=== PATIENT | female | born 1945 | race Caucasian/White ===

== ENCOUNTER 2017-10-22 04:45 | Outpatient (CLI) | payer MEDICARE | END 2017-10-22 23:59 | disposition home or self-care (01) | LOC: DIABETIC 04:45 | PROVIDERS: ATTEND Specialist | DX: E11.9 Type 2 diabetes mellitus without complications (principal) | CPT/HCPCS: G0108 ==

== ENCOUNTER 2018-06-06 01:41 | Outpatient (CLI) | payer MEDICARE | END 2018-06-06 23:59 | disposition home or self-care (01) | LOC: DIABETIC 01:41 | PROVIDERS: ATTEND Specialist | DX: E11.65 Type 2 diabetes mellitus with hyperglycemia (principal); Z79.84 Long term (current) use of oral hypoglycemic drugs; Z91.018 Allergy to other foods | CPT/HCPCS: G0108 ==

== ENCOUNTER 2018-09-03 05:19 | Outpatient (CLI) | payer MEDICARE | END 2018-09-03 23:59 | disposition home or self-care (01) | LOC: DIABETIC 05:19 | PROVIDERS: ATTEND Specialist | DX: E11.65 Type 2 diabetes mellitus with hyperglycemia (principal) | CPT/HCPCS: G0108 ==

== ENCOUNTER 2018-12-04 01:00 | Outpatient (CLI) | payer MEDICARE | END 2018-12-04 23:59 | disposition home or self-care (01) | LOC: DIABETIC 01:00 | PROVIDERS: ATTEND Specialist | DX: E11.65 Type 2 diabetes mellitus with hyperglycemia (principal); Z79.84 Long term (current) use of oral hypoglycemic drugs; Z91.018 Allergy to other foods | CPT/HCPCS: G0108 ==

== ENCOUNTER → 2019-03-11 | Outpatient (CLI) | payer MEDICARE | END | disposition home or self-care (01) | LOC: CANPRECLI → DIABETIC 04:55 | PROVIDERS: ATTEND Specialist | DX: E11.9 Type 2 diabetes mellitus without complications (principal); Z53.21 Procedure and treatment not carried out due to patient leaving prior to being seen by health care provider ==

== ENCOUNTER 2019-04-23 01:04 | Outpatient (CLI) | payer MEDICARE | END 2019-04-23 23:59 | disposition home or self-care (01) | LOC: DIABETIC 01:04 | PROVIDERS: ATTEND Specialist | DX: E11.65 Type 2 diabetes mellitus with hyperglycemia (principal); Z79.84 Long term (current) use of oral hypoglycemic drugs; Z79.899 Other long term (current) drug therapy; Z91.018 Allergy to other foods | CPT/HCPCS: G0108 ==

== ENCOUNTER 2019-07-31 01:51 | Outpatient (CLI) | payer MEDICARE | END 2019-07-31 23:59 | disposition home or self-care (01) | LOC: DIABETIC 01:51 | PROVIDERS: ATTEND Specialist | DX: E11.65 Type 2 diabetes mellitus with hyperglycemia (principal); Z79.84 Long term (current) use of oral hypoglycemic drugs; Z79.899 Other long term (current) drug therapy; Z91.018 Allergy to other foods | CPT/HCPCS: G0108 ==

== ENCOUNTER 2019-10-29 03:13 | Outpatient (CLI) | payer MEDICARE | END 2019-10-29 23:59 | disposition home or self-care (01) | LOC: DIABETIC 03:13 | PROVIDERS: ATTEND Specialist | DX: E11.65 Type 2 diabetes mellitus with hyperglycemia (principal) | CPT/HCPCS: G0108 ==

== ENCOUNTER 2024-10-09 13:42 | Outpatient (CLI) | payer MEDICARE ==
[~2024-10-09] VITALS: Ht 162.6 cm; Wt 99.8 kg
[2024-10-09 15:36] LABS: PRE OP PROTIME 10.9 SECONDS (9.0-12.0)
[2024-10-09] MEDS ORDERED: ROPI0.2534 PO (15:45)
[2024-10-09] MEDS ORDERED: ONDA-104 PO (15:45)
[2024-10-09] MEDS ORDERED: CYAN250010 PO (15:45)
[2024-10-09] MEDS ORDERED: ERGO500093 (15:45)
[2024-10-09] MEDS ORDERED: VIT1CAPS46 PO (15:45)
[2024-10-09] MEDS ORDERED: CALCIUM (15:45)
[2024-10-09] MEDS ORDERED: ATOR-2 (15:45)
[2024-10-09] MEDS ORDERED: EZET10TA48 (15:45)
[2024-10-09] MEDS ORDERED: HYDR25TA4 (15:45)
[2024-10-09] MEDS ORDERED: CARV-50 PO (15:45)
[2024-10-09] MEDS ORDERED: LEVO88TA2 (15:45)
[2024-10-09] MEDS ORDERED: FERR-119 PO (15:45)
[2024-10-09] MEDS ORDERED: MAGN400C PO (15:45)
[2024-10-16] MEDS ORDERED: DOCUMENT DATE & TIME OF BETA-BLOCKER PO ONE (05:30)
[2024-10-16] MEDS ORDERED: ringers solution, lacted 1,000 ML IV SCH (05:30)
[2024-10-16] MEDS ORDERED: ceFAZolin 2gm in dextrose, iso 50 ML IV ONE (05:30)
[2024-10-16] MEDS ORDERED: famotidine 20mg tablet PO ONE (05:30)
== END 2024-10-09 23:59 | disposition home or self-care (01) ==
LOC: LAB 13:42 → EDSTATUS 10-16 12:00
PROVIDERS: ATTEND Surgery
DX: Z01.818 Encounter for other preprocedural examination (principal); N63.21 Unspecified lump in the left breast, upper outer quadrant; R09.89 Other specified symptoms and signs involving the circulatory and respiratory systems; J90 Pleural effusion, not elsewhere classified; J81.1 Chronic pulmonary edema
CPT/HCPCS: 36415; 71046; 85610; 85730; 86885; 86900; 86901; 93005; J0690; J7120